=== PATIENT | male | born 1960 ===

== ENCOUNTER 2017-04-06 10:52 | Emergency (ER) | payer OTHER ==
[2017-04-06 11:38] VITALS: TEMP 98
--- NOTE | 2017-04-06 12:36 | ED PDOC ---
Arrival/HPI - General Chief Complaint: Upper Extremity Problem/Injury Time Seen by Provider: 04/06/17 12:21 Historian: Patient EM Caveat: Acuity of Condition - History of Present Illness Narrative History of Present Illness (Text): 04/06/17 14:57 Pt is a 56 yo male with significant h/o cervical and lumbar myelopathy, PTSD, and MDD, who presents to the ED with left elbow and shoulder pain x 3 weeks. Pt reports that he was diagnosed previously with cervical and lumbar radiculopathy that forces him to ambulate with a cane. Pt states that despite medication to manage his pain, he noticed his left arm and elbow swelling and was seen in [place] for left medial forearm ecchymosis and pain that dissipated over time. Now he states elbow pain remains severe and prevents him from using his cane. Pt is scheduled for spinal surgery at the [facility] in [place] in April 2017 but feels the pain is too intense to wait that long. He currently takes Tramadol 50mg TID daily, meloxicam 15mg daily and gabapentin 300mg tid daily, along with medication for depression (buproprion and escitalopram). Pt also reports that he was using a cotton-tipped swab to clean his ear this morning and had cotton stuck in his ear that is now causing irritation. Pt denies falling, cp, sob, syncope, RUBI, change in vision, N/V/D and GIB. 04/06/17 15:23 04/06/17 20:42 04/06/17 20:44 Time/Duration: 1 hour Symptom Onset: Gradual Symptom Course: Unchanged, Worsening Quality: Aching, Pressure, Burning, Throbbing Severity Level: Moderate Activities at Onset: Rest, Light Context: Standing, Walking, Exertion, Home Associated Symptoms (Text): 04/06/17 14:54 paresthesia bilat UE, tenderness to left elbow Past Medical History - Travel History Have you recently traveled outside [place] w/in the past 3 mons?: Yes If Yes, travel location?: [place] - Patient History Narrative Patient History: cervical and lumbar myelopathy, PTSD, DM2, SHAHIDA, obesity and MDD - Infectious Disease Hx of Infectious Diseases: None - Tetanus Immunization Tetanus Immunization: Unknown - Cardiac Hx Cardiac Disorders: Yes Hx Hypertension: Yes - Pulmonary Hx Respiratory Disorders: Yes Hx Asthma: Yes - Endocrine/Metabolic Hx Endocrine Disorders: Yes Hx Diabetes Mellitus Type 2: Yes - Musculoskeletal/Rheumatological Hx Back Pain: Yes Hx Unsteady Gait: Yes Other/Comment: neuropathy - Psychiatric Hx Psychophysiologic Disorder: Yes Hx Depression: Yes Hx Post Traumatic Stress Disorder: Yes Hx Substance Use: No - Surgical History Hx Musculoskeletal Surgery: Yes (rotator cuff,right hand surgery,right ankle ( dates unknown)) - Anesthesia Hx Anesthesia: Yes Hx Anesthesia Reactions: No Hx Malignant Hyperthermia: No Family/Social History Family/Social History: Unknown Family HX, Hypertension Smoking Status: Never Smoked Hx Alcohol Use: No Hx Substance Use: No Allergies/Home Meds Allergies/Adverse Reactions: Allergies tetracycline Allergy (Verified 04/06/17 11:37) RASH Home Medications: Home Meds Medication Instructions Recorded Confirmed Alendronate [Fosamax] 10 mg PO DAILY 04/06/17 04/06/17 Bupropion HCl 100 mg PO 04/06/17 Escitalopram [Lexapro] 5 mg PO 04/06/17 Gabapentin [Neurontin] 300 mg PO TID 04/06/17 04/06/17 Lisinopril [Zestril] 2.5 mg PO DAILY 04/06/17 04/06/17 Metoprolol Succinate [Toprol XL] 50 mg PO BID 04/06/17 04/06/17 Montelukast [Singulair] 10 mg PO HS 04/06/17 04/06/17 Simvastatin [Zocor] 40 mg PO DIN 04/06/17 04/06/17 metFORMIN [glucOPHAGE] 500 mg PO BID 04/06/17 04/06/17 Review of Systems - Patients Enrolled in [employer] [X]: A conversation was conducted with the primary medical doctor. - Review of Systems Constitutional: Normal Eyes: Normal ENT: Hearing Changes (Cotton from Q-tip in right ear canal). absent: Tinnitus, TMJ Pain, Voice Changes, Sore Throat, Rhinorrhea, Epistaxis, Sinus Congestion, Other Respiratory: Normal Cardiovascular: Normal Gastrointestinal: Normal Genitourinary Male: Normal Musculoskeletal: Back Pain, Neck Pain Skin: Normal, Other (left elbow swelling) Neurological: Normal Endocrine: Normal Hemo/Lymphatic: Normal Psychiatric: Normal Physical Exam Vital Signs Reviewed: Yes Vital Signs Temp Pulse Resp BP Pulse Ox 04/06/17 14:10 73 16 129/80 7 L 01/11/18 11:28 98 F 75 18 130/82 98 Temperature: Afebrile Blood Pressure: Normal Pulse: Regular Respiratory Rate: Normal Appearance: Positive for: Non-Toxic Pain Distress: Moderate Mental Status: Positive for: Alert and Oriented X 3 - Systems Exam Head: Present: Normocephalic Pupils: Present: PERRL Extroacular Muscles: Present: EOMI Conjunctiva: Present: Normal Ears: Present: NORMAL TM (Left TM; right obstructed by foreign object), Normal Canal (cotton swab tip in right ear canal) Mouth: Present: Moist Mucous Membranes, Normal Tounge, Normal Teeth Pharnyx: Present: Normal Nose (External): Present: Atraumatic Nose (Internal): Present: Normal Inspection Neck: Present: Normal Range of Motion (Limited ROM in all palnes d/t cervical myelopathy) Respiratory/Chest: Present: Clear to Auscultation, Good Air Exchange Cardiovascular: Present: Regular Rate and Rhythm, Normal S1, S2 Abdomen: No: Tenderness, Distention, Normal Bowel Sounds, Peritoneal Signs, Rebound, Guarding, McBurney's Point Tender, Rovsing's Sign Present, Hernias, Feeding Tubes, Ostomy Tubes, Mass/Organomegaly, Scars, Other Rectal: No: Occult Blood, Rectal Tenderness, Gross Blood, Melena, Hemorrhoids, Normal Rectal Tone, Fissures, Nodule/Mass/Lesions, Other Breast/Axillary: No: Axillary Lymphad, Discoloration, Erythema, Fluctuance, Masses, Nipple Discharge, Other, Swelling, Symmetrical, Tender to Palpation Back: Present: Other (Low back pain, no issues ambulating, no point tenderness) Upper Extremity: Present: Edema, Capillary Refill < 2s, Other (Altered sensation in the C5-T1 distribution b/l UE) Lower Extremity: Present: Normal Inspection, NORMAL PULSES, Normal ROM, Capillary Refill < 2 s Neurological: Present: GCS=15, CN II-XII Intact, Other (Motor function of extremities 3/5 bilateral x 4 ) Skin: Present: Warm, Dry, Normal Color Psychiatric: Present: Alert, Oriented x 3, Normal Insight, Normal Concentration , Normal Affect, Normal Mood Medical Decision Making ED Course and Treatment: 04/06/17 20:59 Patient seen and cared for in ED. Removed foreign object in right ear canal, provided pain mgmt. Patient tolerated procedure and d/c'd home stable with f/u to his PMD within 5-10 days. - Medication Orders Current Medication Orders: Percocet 5mg/325mg tab PO Q4-6H PRN pain for 4-5 days. Rx given to patient. - Procedure PROCEDURE NOTE (Text): 04/06/17 20:19 56 yo [place] male who came to this ED at 14:00 c/o right ear discomfort. He stated that he had broken a Q-tip in his right ear and was unable to remove it. On ear exam, cotton was seen lodged in right auditory canal, however no laceration(s) or erythema was noted. Verbal consent was attained by patient to assess and remove object. Hemostats were used to remove foreign body without incident. Patient tolerated procedure. - PA / POWER LINEWORKER / Resident Statement / has reviewed & agrees with the documentation as recorded. / has examined the patient and agrees with the treatment plan. Disposition/Present on Arrival - Present on Arrival Any Indicators Present on Arrival: Yes History of DVT/PE: No History of Uncontrolled Diabetes: No Urinary Catheter: No History of Decub. Ulcer: No History Surgical Site Infection Following: None - Disposition Have Diagnosis and Disposition been Completed?: Yes Diagnosis: Bursitis, Cervical radiculopathy, Foreign body in ear Disposition: HOME/ ROUTINE Disposition Time: 14:50 Patient Plan: Discharge Condition: STABLE Discharge Instructions (ExitCare): Oxycodone/Acetaminophen (By mouth), Ear Foreign Body (ED), Elbow Bursitis (ED) Additional Instructions: F/U with PMD within 1 week post ED discharge for continuance of care. Prescriptions: oxyCODONE/Acetaminophen [Percocet 5/325 mg Tab] 1 tab PO QID PRN #20 tab PRN Reason: Pain, Moderate (4-7) Referrals: [facility] Dar Tello, [Primary Care Provider] - Follow up with primary Forms: Functional Neuromodulation (Divehi)
[2017-04-06 14:41] VITALS: BP 129/80; PULSE 73; RESP 16; O2SAT 7
== END 2017-04-06 14:45 | disposition home or self-care (01) ==
LOC: EDSEX → ED 10:52
DX: M54.12 Radiculopathy, cervical region (principal); T16.1XXA Foreign body in right ear, initial encounter; X58.XXXA Exposure to other specified factors, initial encounter; Y93.E8 Activity, other personal hygiene; M70.22 Olecranon bursitis, left elbow; E11.9 Type 2 diabetes mellitus without complications; I10 Essential (primary) hypertension; G47.33 Obstructive sleep apnea (adult) (pediatric)